=== PATIENT | female | born 1975 | race Two or more races ===

== ENCOUNTER 2020-10-05 04:41 | Day surgery (SDC) | payer OTHER ==
[2020-10-02 14:56] VITALS: BMI 33.3
[2020-10-05] MEDS ORDERED: MIDAZOLAM HCL 2 MG/2 ML SINGLE DOSE VIAL ONE (12:46)
[2020-10-05] MEDS ORDERED: PROPOFOL 20 ML ONE (12:46)
[2020-10-05] MEDS ORDERED: ONDANSETRON 4 MG/2 ML VIAL IVPUSH PRN (15:18)
[2020-10-05] MEDS ORDERED: oxyCODONE HCL 5 MG TABLET PO PRN ×3 (15:18→15:19)
[2020-10-05] MEDS ORDERED: ACETAMINOPHEN 325 MG TABLET (FP) PO PRN (15:19)
[2020-10-05] MEDS ORDERED: IBUPROFEN 400 MG TABLET (FP) PO PRN (15:19)
[2020-10-05] MEDS ORDERED: LACTATED RINGERS SOLUTION 1,000 ML IV SCH (15:30)
[2020-10-05 16:03] VITALS: TEMP 97.5
[2020-10-05 16:50] VITALS: BP 138/75; PULSE 67
== END 2020-10-05 16:45 | disposition home or self-care (01) ==
LOC: JASU-SURG 04:41
PROVIDERS: ATTEND Obstetrics & Gynecology
PROC: 0U5B8ZZ Destruction of Endometrium, Via Natural or Artificial Opening Endoscopic (ICD-10-PCS; principal; 2020-10-05 13:00)
PROC: 0UDB7ZX Extraction of Endometrium, Via Natural or Artificial Opening, Diagnostic (ICD-10-PCS; 2020-10-05 13:00)
DX: N92.0 Excessive and frequent menstruation with regular cycle (principal); D25.0 Submucous leiomyoma of uterus
CPT/HCPCS: 88305-TC; 94760